=== PATIENT | male | born 1935 | race Caucasian/White ===

== ENCOUNTER 2018-10-22 22:47 | Emergency (ER) | payer MEDICARE, OTHER ==
[~2018-10-22] VITALS: Ht 170.2 cm; Wt 77.3 kg
[2018-10-22 22:51] VITALS: Ht 170.2 cm; Wt 77.3 kg
[2018-10-23 01:55] LABS: BASOPHILS 0.3 % (0-2); EOSINOPHILS 1.4 % (0-7); HEMATOCRIT 37.5 % (42.0-54.0); HEMOGLOBIN 12.8 g/dL (13.5-17.5); IMMATURE GRANULOCYTES 0.2 % (0-5); LYMPHOCYTES 13.7 % (15-50); MCH 30.8 pg (26.0-34.0); MCHC 34.1 g/dL (31.0-37.0); MCV 90.4 fL (80.0-100.0); MEAN PLATELET VOLUME 9.1 fL (7.4-10.4); MONOCYTES 6.6 % (2-11); NEUTROPHILS 77.8 % (40-80); PLATELET COUNT 206 10x3/uL (130-400); RBC 4.15 10x6/uL (4.20-6.10); RDW 12.7 % (11.5-14.5); WBC 9.6 10x3/uL (4.8-10.8)
[2018-10-23 02:08] LABS: ALBUMIN 3.2 g/dL (3.4-5.0); ALKALINE PHOSPHATASE 56 U/L (46-116); ALT (SGPT) 44 U/L (10-68); BILIRUBIN - TOTAL 0.23 mg/dL (0.2-1.3); CALC OSMOLALITY 282 mosm/kg (275-300); CALCIUM 8.3 mg/dL (8.5-10.1); CARBON DIOXIDE 29.1 mmol/L (21.0-32.0); CHLORIDE - SERUM 100 mmol/L (98-107); CREATININE - SERUM 1.1 mg/dL (0.6-1.3); GLUCOSE 253 mg/dL (74-106); POTASSIUM - SERUM 3.8 mmol/L (3.5-5.1); SODIUM 136 mmol/L (136-145); UREA NITROGEN 19 mg/dL (7-18); eGFR NON AFRICAN AMERICAN 67 mL/min (90-120)
[2018-10-23 02:18] LABS: CKMB 0.6 U/L (0.0-3.6); CREATINE KINASE 87 UL (21-232)
[2018-10-23 02:21] LABS: TROPONIN-I < 0.017 ng/mL (0.000-0.060)
[2018-10-23] MEDS ORDERED: HYDROCODON-ACE1 EAC7 PO (03:58)
[2018-10-23] MEDS ORDERED: AUGMENTIN 875-11 TAB PO (03:58)
[2018-10-23 05:19] VITALS: BP 135/72
== END 2018-10-23 05:19 | disposition home or self-care (01) ==
LOC: D.ER 22:47
PROVIDERS: Family Medicine
DX: S22.41XA Multiple fractures of ribs, right side, initial encounter for closed fracture (principal); W18.30XA Fall on same level, unspecified, initial encounter; Y93.89 Activity, other specified; Y92.018 Other place in single-family (private) house as the place of occurrence of the external cause; Y99.2 Volunteer activity; E11.9 Type 2 diabetes mellitus without complications; G40.909 Epilepsy, unspecified, not intractable, without status epilepticus; I10 Essential (primary) hypertension

== ENCOUNTER 2020-01-04 00:09 | Emergency (ER) | payer MEDICARE, OTHER ==
[~2020-01-04] VITALS: Ht 170.2 cm; Wt 78.2 kg
[~2020-01-04 00:09] MED LIST: AUGMENTIN 875-11 TAB PO; HYDROCODON-ACE1 EAC7 PO
[2020-01-04 00:11] VITALS: Ht 170.2 cm; Wt 78.2 kg
[2020-01-04] MEDS ORDERED: COZAAR50 MG PO (00:13)
[2020-01-04] MEDS ORDERED: NORVASC5 MG PO (00:13)
[2020-01-04] MEDS ORDERED: NEXIUM20 MG (00:14)
[2020-01-04] MEDS ORDERED: LEXAPRO10 MG PO (00:14)
[2020-01-04] MEDS ORDERED: GLUCOPHAGE1000 MG (00:14)
[2020-01-04] MEDS ORDERED: GLIMEPIRIDE4 MG PO (00:14)
[2020-01-04] MEDS ORDERED: CARBATROL 200200 MG (00:15)
[2020-01-04] MEDS ORDERED: HYDROCHLOROTH12.5 M1 PO (00:15)
[2020-01-04] MEDS ORDERED: BAYER CHEWABLE81 MG (00:15)
[2020-01-04] MEDS ORDERED: CRESTOR40 MG PO (00:16)
[2020-01-04 01:33] VITALS: BP 156/84
== END 2020-01-04 01:33 | disposition home or self-care (01) ==
LOC: D.ER 00:09
DX: S00.03XA Contusion of scalp, initial encounter (principal); S00.01XA Abrasion of scalp, initial encounter; W19.XXXA Unspecified fall, initial encounter; Y93.9 Activity, unspecified; Y92.9 Unspecified place or not applicable; E11.9 Type 2 diabetes mellitus without complications; I10 Essential (primary) hypertension; I25.2 Old myocardial infarction; Z79.84 Long term (current) use of oral hypoglycemic drugs